=== PATIENT | male | born 1955 | race Caucasian/White ===

== ENCOUNTER → 2016-03-31 | Day surgery (SDC) | payer OTHER ==
[2016-03-20 10:55] VITALS: Ht 162.6 cm; Wt 81.8 kg
[~2016-03-31] VITALS: Ht 162.6 cm; Wt 81.8 kg
[~2016-03-31] MED LIST: GEMF600T PO; GLC/500 PO; INSDGI SC; LIDOCAINE HCL 2% 2 ML VIAL (20MG/ML) ONE; LPR25 PO; MIDAZOLAM HCL 1 MG/ML 2ML VIAL ONE; NVLG SC; ONDANSETRON INJ 2 MG/ML 2 ML VIAL ONE; PROPOFOL IV EMULSION 10 MG/ML 20 ML VIAL IV ONE
--- NOTE | 2016-03-31 09:37 | Endo History and Physical ---
History & Physical Date of Service: Mar 31, 2016. Chief Complaint: Screening Referring Physician: Preston History of Present Illness 61 yo male who presents for screening colonoscopy. Past Surgical History Hx Cardiac Surgery: Yes (HEART CATH-1 STENTS) Hx Internal Defibrillator: No Hx Pacemaker: No Hx Abdominal Surgery: Yes (APPY) Hx of Implantable Prosthesis: No Hx Post-Op Nausea and Vomiting: No Hx Cancer Surgery: No Hx Thoracic Surgery: No Hx Orthopedic: Yes (LEFT HAND SX (TENDONITIS)) Hx Urinary Tract Surgery: No Social History Smoking Status: Former Smoker Hx Substance Use: No Hx Alcohol Use: Yes (RARELY) Allergies Coded Allergies: BEE STING (Verified Allergy, Unknown, ANAPHYLAXIS, 03/20/16) NO KNOWN DRUG ALLERGIES (Verified Allergy, Unknown, ., 03/20/16) Current Medications Reported Home Medications Medications Dose Route/Sig Max Daily Dose Days Date Category Novolog (Insulin Aspart) 100 Units/Ml Inj 1 Dose SC AC 03/20/16 Reported Lopressor (Metoprolol Tartrate) 25 Mg Tab 25 Mg PO BID 03/20/16 Reported Glucophage (Metformin Hcl) 500 Mg Tab 500 Mg PO DAILY 03/20/16 Reported Lantus (Insulin Glargine) 100 Unit/Ml Inj 1 Dose SC QPM 03/20/16 Reported Lopid (Gemfibrozil) 600 Mg Tab 600 Mg PO QPM 03/20/16 Reported Vital Signs Weight (Kilograms): 81.82 Height (Feet): 5 Height (Inches): 4 Date Time Temp Pulse Resp B/P Pulse Ox O2 Delivery O2 Flow Rate FiO2 03/31/16 09:14 36.2 87 18 151/72 97 Room Air Physical Exam General Appearance: WD/WN, no apparent distress Respiratory/Chest: Auscultation: breath sounds normal Cardiovascular: Heart Auscultation: RRR Abdomen: Bowel Sounds: normal Inspection & Palpation: soft, non-distended, no tenderness, guarding & rebound Assessment and Plan Assessment: 61 yo male who presents for screening colonoscopy. Plan: Proceed with colonoscopy.
--- NOTE | 2016-03-31 10:13 | Discharge Instructions ---
Endoscopy Patient Instructions Date / Procedure(s) Performed Mar 31, 2016. Colonoscopy Allergy Information Coded Allergies: BEE STING (Verified Allergy, Unknown, ANAPHYLAXIS, 03/20/16) NO KNOWN DRUG ALLERGIES (Verified Allergy, Unknown, ., 03/20/16) Discharge Date / Findings Mar 31, 2016. Diverticulosis Internal hemorrhoids Medication Instructions OK to resume all medications today as prescribed. Reported Home Medications Medications Dose Route/Sig Max Daily Dose Days Date Category Novolog (Insulin Aspart) 100 Units/Ml Inj 1 Dose SC AC 03/20/16 Reported Lopressor (Metoprolol Tartrate) 25 Mg Tab 25 Mg PO BID 03/20/16 Reported Glucophage (Metformin Hcl) 500 Mg Tab 500 Mg PO DAILY 03/20/16 Reported Lantus (Insulin Glargine) 100 Unit/Ml Inj 1 Dose SC QPM 03/20/16 Reported Lopid (Gemfibrozil) 600 Mg Tab 600 Mg PO QPM 03/20/16 Reported Provider Instructions Activity Restrictions - No exercising or heavy lifting for 24 hours. - Do not drink alcohol the day of the procedure. - Do not drive a car or operate machinery until the day after the procedure. - Do not make any important decisions or sign important papers in 24 hours after the procedure. Following Day: - Return to full activity which may include returning to work/school. Diet Start your diet with liquids and light foods (jello, soup, juice, toast). Then eat your usual diet if not nauseated. Treatment For Common After Affects For mild abdominal pain, bloating, or excessive gas: - Rest - Eat lightly - Lie on right side Follow-Up Information Follow-up with Cecy as scheduled Anesthesia Information What You Should Know You have had a procedure that required some medicine to reduce anxiety and discomfort. This treatment is called moderate sedation. After receiving the treatment, you may be sleepy, but you will be able to breathe on your own. The effects of the treatment may last for several hours. Follow these instructions along with Activity/Diet recommendations noted above: * Do NOT do anything where dizziness or clumsiness would be dangerous. * Rest quietly at home today, then you can be up and about tomorrow. * Have a responsible person stay with you the rest of today. * You may have had an I.V. today. If so, you may take the dressing off later today. Recommendations Call your doctor if: * Trouble breathing * Continuous vomiting for more than 24 hours * Temperature above 101 degrees * Severe abdominal pain or bloating * Pain not relieved by pain medicine ordered * There is increased drainage or redness from any incision * A large amount of rectal bleeding greater than 2-3 tablespoons. (If you had a polyp/s removed or have hemorrhoids, a small amount of blood - from the rectum is to be expected.) * You have any unanswered questions or concerns. IN THE EVENT OF A SERIOUS EMERGENCY, GO TO THE NEAREST EMERGENCY ROOM Your discharge instructions were prepared by provider Luis Miguel Box. Patient Instructions Signature Page Zdzislaw Purvis Patient (or Guardian) Signature/Date: I have read and understand the instructions given to me by my caregivers. Caregiver/RN/Doctor Signature/Date: The above-named patient and/or guardian has received patient instructions on this date. + Original Patient Signature Page (only) stays with chart. Please make copy for patient.
[2016-03-31 10:35] VITALS: BP 118/76; PULSE 80; O2SAT 97
--- NOTE | 2016-03-31 10:41 | GI REPORT ---
Procedure Date: 03/31/2016 9:48 AM Procedure: Colonoscopy Indications: Follow-up of diverticulitis Medicines: Monitored Anesthesia Care Complications: No immediate complications. Estimated Blood Loss: Estimated blood loss: none. Procedure: Pre-Anesthesia Assessment: - Prior to the procedure, a History and Physical was performed, and patient medications and allergies were reviewed. The patient's tolerance of previous anesthesia was also reviewed. The risks and benefits of the procedure and the sedation options and risks were discussed with the patient. All questions were answered, and informed consent was obtained. Prior Anticoagulants: The patient has taken no previous anticoagulant or antiplatelet agents. ASA Grade Assessment: III - A patient with severe systemic disease. After reviewing the risks and benefits, the patient was deemed in satisfactory condition to undergo the procedure. After I obtained informed consent, the scope was passed under direct vision. Throughout the procedure, the patient's blood pressure, pulse, and oxygen saturations were monitored continuously. The On-site loaner was introduced through the anus and advanced to the cecum, identified by appendiceal orifice and ileocecal valve. The colonoscopy was performed without difficulty. The patient tolerated the procedure well. The quality of the bowel preparation was good. The ileocecal valve, appendiceal orifice, and rectum were photographed. Findings: Multiple small-mouthed diverticula were found in the sigmoid colon. Non-bleeding internal hemorrhoids were found during retroflexion. The hemorrhoids were small. Impression: - Diverticulosis in the sigmoid colon. - Non-bleeding internal hemorrhoids. - No specimens collected. Recommendation: - Resume previous diet. - Continue present medications. - Repeat colonoscopy in 10 years for surveillance. - Return to primary care physician as previously scheduled. Luis Miguel Box, DO 03/31/2016 10:40:28 AM This report has been signed electronically. Note Initiated On: 03/31/2016 9:48 AM
--- NOTE | 2016-03-31 11:17 | Anesthesiology Progress Note ---
Anesthesia Post Op Note Date & Time Mar 31, 2016 at 11:17 Vital Signs Pain Intensity: 0 Vital Signs Past 12 Hours Date Time Temp Pulse Resp B/P Pulse Ox O2 Delivery O2 Flow Rate FiO2 03/31/16 10:35 80 16 118/76 97 Room Air 03/31/16 10:20 87 16 114/69 97 Room Air 03/31/16 10:05 88 16 111/64 96 Room Air 03/31/16 09:14 36.2 87 18 151/72 97 Room Air Notes Mental Status: alert / awake / arousable, participated in evaluation Pt Amnestic to Procedure: Yes Nausea / Vomiting: adequately controlled Pain: adequately controlled Airway Patency, RR, SpO2: stable & adequate BP & HR: stable & adequate Hydration State: stable & adequate Anesthetic Complications: no major complications apparent
== END | disposition home or self-care (01) ==
LOC: C.GI 08:51
PROVIDERS: ATTEND Internal Medicine
DX: Z12.11 Encounter for screening for malignant neoplasm of colon (principal); K57.92 Diverticulitis of intestine, part unspecified, without perforation or abscess without bleeding; K64.8 Other hemorrhoids; E11.9 Type 2 diabetes mellitus without complications; Z79.4 Long term (current) use of insulin; Z87.891 Personal history of nicotine dependence